=== PATIENT | female | born 1985 | race Caucasian/White ===

== ENCOUNTER 2023-07-14 20:55 | Emergency (ER) | payer BC ==
[~2023-07-14] VITALS: Ht 154.9 cm; Wt 79.5 kg
[2023-07-14 20:57] VITALS: BP 158/83; TEMP 98.6
[2023-07-14] MEDS ORDERED: bacitracin 15gm ointment TP ONE (22:10)
[2023-07-14] MEDS ORDERED: TETanus/Pertussis (Acell)/Diphther VAC/PF (Tdap-Adult) 0.5ml syringe IMVAC ONE (22:10)
[2023-07-14 22:52] VITALS: PULSE 97; RESP 18; O2SAT 100
== END 2023-07-14 22:53 | disposition home or self-care (01) ==
LOC: ER 20:56
DX: S80.01XA Contusion of right knee, initial encounter (principal); S80.811A Abrasion, right lower leg, initial encounter; Z91.048 Other nonmedicinal substance allergy status; Z23 Encounter for immunization; W19.XXXA Unspecified fall, initial encounter; Y93.89 Activity, other specified; Y92.89 Other specified places as the place of occurrence of the external cause; Y99.8 Other external cause status
CPT/HCPCS: 73564; 90471; 90715; 99283

== ENCOUNTER 2024-04-11 21:26 | Inpatient (IN) | payer BC ==
[~2024-04-11] VITALS: Ht 154.9 cm; Wt 103.1 kg
[~2024-04-11 21:26] MED LIST: RISP-32 PO
[2024-04-11 22:36] LABS: BASOPHILS % (AUTO) 0.4 % (0-1); EOSINOPHILS # (AUTO) 0.1 X10'3 (0-0.9); EOSINOPHILS % (AUTO) 0.6 % (0-6); HEMATOCRIT 36.5 % (35.0-45.0); LYMPHOCYTES # (AUTO) 3.3 X10'3 (1.1-4.8); LYMPHOCYTES % (AUTO) 32.6 % (21-51); MEAN CORPUSCULAR HEMOGLOBIN 27.1 PG (27.0-31.0); MEAN CORPUSCULAR HGB CONC 32.9 g/dL (33.0-36.5); MEAN CORPUSCULAR VOLUME 82.3 FL (78-98); MEAN PLATELET VOLUME 7.7 FL (7.4-10.4); MONOCYTES # (AUTO) 0.6 X10'3 (0-0.9); MONOCYTES % (AUTO) 6.2 % (2-12); NEUTROPHILS # (AUTO) 6.1 X10'3 (1.8-7.7); NEUTROPHILS % (AUTO) 60.2 % (42-75); PLATELET COUNT 255 X10'3 (140-440); RED BLOOD COUNT 4.43 X10'6 (4.20-5.60); RED CELL DISTRIBUTION WIDTH 17.9 % (11.5-14.5); WHITE BLOOD COUNT 10.1 X10'3 (4.5-11.0)
[2024-04-11 22:45] LABS: ALANINE AMINOTRANSFERASE 18 U/L (12-78); ALBUMIN 3.7 G/DL (3.4-5.0); ALBUMIN/GLOBULIN RATIO 0.9 (1.1-1.5); ALKALINE PHOSPHATASE 61 IU/L (46-116); ANION GAP 6 (8-16); ASPARTATE AMINO TRANSFERASE 19 U/L (10-37); BILIRUBIN,TOTAL 0.9 MG/DL (0.1-1.0); BLOOD UREA NITROGEN 11 MG/DL (7-18); BUN/CREATININE RATIO 11.1 (10.0-20.0); CALCIUM 8.6 MG/DL (8.5-10.1); CHLORIDE 101 MMOL/L (99-107); CREATININE 0.99 MG/DL (0.40-0.90); GLUCOSE 111 MG/DL (70-104); POTASSIUM 3.2 MMOL/L (3.5-5.1); SODIUM 139 MMOL/L (135-145); TOTAL PROTEIN 7.8 G/DL (6.4-8.2); eCRCL 59 ML/MIN; eGFR 63 ML/MIN
[2024-04-11 22:56] LABS: THYROID STIMULATING HORMONE 1.32 ulU/ml (0.34-4.50)
[2024-04-11 22:57] LABS: ETHANOL < 10 MG/DL (<10)
[2024-04-11] MEDS ORDERED: DIVA-76 PO (23:06)
[2024-04-11] MEDS ORDERED: OLAN20TA81 PO (23:06)
[2024-04-11 23:38] LABS: MAGNESIUM 1.9 MG/DL (1.5-2.4); VALPROATE 6 UG/ML (50-100)
[2024-04-12] MEDS: divalproex sodium 500mg tablet.DR PO STA (00:21)
[2024-04-12] MEDS: potassium Cl 20 mEq SR tablet PO STA (00:22)
[2024-04-12 02:11] LABS: URINE HCG NEGATIVE (NEG)
[2024-04-12 02:12] LABS: BILIRUBIN,URINE NEGATIVE (Neg); CLARITY,URINE SLIGHTLY CLOUDY (Clear); COLOR,URINE YELLOW (Yellow); GLUCOSE, URINE NEGATIVE (Neg); KETONES,URINE NEGATIVE (Neg); LEUKOCYTE ESTERASE ,URINE MODERATE (Neg); NITRITES, URINE NEGATIVE (Neg); OCCULT BLOOD,URINE LARGE (Neg); PROTEIN,URINE NEGATIVE (Neg); UROBILINOGEN,URINE 0.2 E.U/dL (0.2-1.0)
[2024-04-12 02:21] LABS: URINE AMPHETAMINE SCREEN POSITIVE (Neg); URINE BARBITUATE SCREEN NEGATIVE (Neg); URINE BENZODIAZEPINES SCREEN NEGATIVE (Neg); URINE CANNABINOID SCREEN POSITIVE (Neg); URINE COCAINE SCREEN NEGATIVE (Neg); URINE METHADONE SCREEN NEGATIVE (Neg); URINE OPIATE SCREEN NEGATIVE (Neg); URINE PHENCYCLIDINE SCREEN NEGATIVE (Neg)
[2024-04-12 02:22] LABS: UA COLLECTION TYPE CLN CATCH MIDSTREAM
[2024-04-12 02:27] LABS: SQUAMOUS EPITHELIAL CELL,UR MODERATE /LPF (FEW)
[2024-04-12 02:30] LABS: RBC,URINE 0-2 /HPF (0-2)
[2024-04-12 02:31] LABS: BACTERIA,URINE 1+ /HPF (Neg)
[2024-04-12] MEDS: divalproex 250mg tablet, delayed-release PO SCH (08:16)
[2024-04-12] MEDS ORDERED: mag hydrox/Alum hydrox/simeth 30ml oral suspension PO PRN (15:15)
[2024-04-12] MEDS ORDERED: magnesium hydroxide 30ml (MOM) UD suspension PO PRN (15:15)
[2024-04-12] MEDS ORDERED: loperamide 2mg capsule PO PRN (15:15)
[2024-04-12] MEDS ORDERED: acetaminophen 325mg tablet PO PRN ×2 (15:15)
[2024-04-12 17:14] VITALS: BP 118/62; PULSE 87; RESP 16; TEMP 98.3; O2SAT 98
[2024-04-12 17:15] VITALS: RESP 16; O2SAT 98
[2024-04-12 19:21] VITALS: BP 107/62; PULSE 86; RESP 14; TEMP 97.1; O2SAT 100
[2024-04-12] MEDS: olanzapine 10mg tablet PO SCH (20:05)
[2024-04-12] MEDS: FLU VACC TS2024-25(6MOS UP)/PF 45 MCG/0.5 ML SYRINGE IMVAC ONE (20:06)
[2024-04-13 07:00] VITALS: RESP 16; O2SAT 99
[2024-04-13 07:30] VITALS: BP 126/76; PULSE 74; RESP 16; TEMP 97.1; O2SAT 99
[2024-04-13 19:24] VITALS: BP 120/75; PULSE 76; RESP 18; TEMP 97.8; O2SAT 100
[2024-04-14 07:00] VITALS: RESP 14; O2SAT 98
[2024-04-14 08:00] VITALS: BP 103/70; PULSE 81; RESP 14; TEMP 97.2; O2SAT 98
[2024-04-14 19:07] VITALS: BP 122/76; PULSE 82; RESP 18; TEMP 98; O2SAT 98
[2024-04-14 19:13] VITALS: RESP 18; O2SAT 98
[2024-04-15 07:00] VITALS: RESP 16; O2SAT 97
[2024-04-15 07:30] VITALS: BP 105/62; PULSE 86; RESP 16; TEMP 96.9; O2SAT 97
[2024-04-15] MEDS ORDERED: DIVA-76 PO (13:03)
[2024-04-15] MEDS ORDERED: OLAN20TA81 PO (13:03)
== END 2024-04-15 14:15 | disposition home or self-care (01) | DRG 885 ==
LOC: ER 21:27 → UNDOADMIN 04-12 10:55 → ADULT MH 04-12 10:55
PROVIDERS: ADMIT Psychiatry & Neurology Psychiatry; ATTEND Psychiatry & Neurology Psychiatry
PROC: GZHZZZZ Group Psychotherapy (ICD-10-PCS; principal; 2024-04-12)
PROC: GZ56ZZZ Individual Psychotherapy, Supportive (ICD-10-PCS; 2024-04-12)
PROC: 3E02340 Introduction of Influenza Vaccine into Muscle, Percutaneous Approach (ICD-10-PCS; 2024-04-12)
DX: F20.9 Schizophrenia, unspecified (principal); R45.851 Suicidal ideations; Z59.00 Homelessness unspecified; Z20.822 Contact with and (suspected) exposure to COVID-19; F31.9 Bipolar disorder, unspecified; F15.90 Other stimulant use, unspecified, uncomplicated; Z88.8 Allergy status to other drugs, medicaments and biological substances; Z56.0 Unemployment, unspecified; Z23 Encounter for immunization
CPT/HCPCS: 36415; 80053; 80164; 80305; 80320; 81001; 81025; 83735; 84443; 85025; 87081; 87811; 90471; 90686; 99285